=== PATIENT | female | born 1955 | race Caucasian/White ===

== ENCOUNTER → 2019-03-12 | Outpatient (CLI) | payer OTHER | LOC: COL.RAD 09:26 | DX: K82.8 Other specified diseases of gallbladder (principal) | CPT/HCPCS: A9537 ==

== ENCOUNTER → 2021-09-19 | Outpatient (CLI) | payer MEDICARE | LOC: COL.RAD 08:49 | DX: N28.1 Cyst of kidney, acquired (principal); M41.86 Other forms of scoliosis, lumbar region; M47.816 Spondylosis without myelopathy or radiculopathy, lumbar region; J98.4 Other disorders of lung; Z90.49 Acquired absence of other specified parts of digestive tract | CPT/HCPCS: Q9967 ==